=== PATIENT | female | born 1985 | race African-American/Black ===

== ENCOUNTER 2018-11-06 14:42 | Inpatient (IN) ==
[2018-11-06] MEDS ORDERED: ALBUTEROL 2.5 MG/3 ML NEB RESP TX PRN (16:42)
[2018-11-06] MEDS ORDERED: ONDANSETRON 4 MG/2 ML VIAL IV PRN (16:42)
[2018-11-06] MEDS ORDERED: PROPOFOL 1,000 MG/100 ML BOTTLE IV SCH (17:00)
[2018-11-06 17:20] LABS: Basophils % 0.3 % (0.0-0.8); Hematocrit 32.7 VOL% (35.7-47.0); Hemoglobin 10.8 GM/DL (12.0-16.0); Immature Granulocytes % 0.4 %; Immature Granulocytes Absolute 0.03 #; Lymphocytes # 2.9 10*3/uL (1.4-4.0); Lymphocytes % 39.7 % (21.3-54.2); Mean Corpuscular Volume 100.3 FL (87-102); Mean Platelet Volume 11.9 FL (9.6-12.0); Monocytes % 8.8 % (1.7-12.7); Neutrophils % 50.8 % (38.7-73.9); Red Blood Count 3.26 MC/CUMM (3.8-5.5); Red Cell Distribution Width 13.6 % (9.3-17.3); White Blood Count 7.4 T/CUMM (4-12)
[2018-11-06 17:21] LABS: Platelet Count 73 T/CUMM (130-400)
[2018-11-06 17:22] LABS: Allen Test Positive; Pt O2 Delivery Device Ventilator
[2018-11-06 17:26] LABS: ABG Base Excess -0.6 MMOL/L (-2.5-2.5); ABG Oxygen Saturation 99.4 % (95-100); ABG PCO2 39.3 MM HG (35-48); ABG PH 7.404 (7.35-7.45); ABG TCO2 25.2 MMOL/L (23-27)
[2018-11-06 17:54] LABS: Albumin 2.5 G/DL (3.4-5.0); Bilirubin,Total 0.8 MG/DL (0.2-1.0); Calcium 7.7 MG/DL (8.5-10.1); Thyroid Stimulating Hormone 0.705 uIU/ml (0.358-3.74); Total Protein 6.7 G/DL (6.4-8.3)
[2018-11-06 17:56] LABS: Band Neutrophils 3 % (0-10); Lymphocytes 34 % (20-55); Segmented Neutrophils 53 % (50-85); Total Cells Counted 100
[2018-11-06 17:57] LABS: Anisocytosis 1+; Hypochromasia 1+; Platelet Estimate Decreased; Polychromasia 1+
[2018-11-06] MEDS: SODIUM CHLORIDE 0.9% 1,000 ML IV SCH (18:09)
[2018-11-06 18:13] LABS: Apearance,Urine CLEAR (Clear); Bilirubin,Urine Moderate mg/dL (Negative); Blood, Urine Negative (Negative); Glucose,Urine (UA) Negative (Negative); Ketones,Urine Negative (Negative); Mucus,Urine Occasional /LPF (Occasional); Nitrite,Urine Negative (Negative); Protein,Urine 100 MG/DL; RBC,Urine 19 /HPF (0-4); Squamous Epithelial Cell,Urine Occasional /HPF (0-10); Urine Color Amber (Yellow); Urine Specific Gravity 1.049 (1.001-1.035); WBC,Urine 23 /HPF (0-6)
[2018-11-06] MEDS: PANTOPRAZOLE 40 MG VIAL IV SCH (18:18)
[2018-11-06] MEDS: POTASSIUM CHLORIDE RIDER 10 MEQ in PREMIX 1 EACH IV SCH ×4 (18:26→22:10)
[2018-11-06] MEDS: PIPERACILLIN/TAZOBACTAM 3,375 MG in SODIUM CHLORIDE 0.9% 100 ML IV SCH (18:30)
[2018-11-06] MEDS: ALBUTEROL/IPRATROPIUM 3 ML NEB RESP TX SCH (19:23)
[2018-11-06] MEDS ORDERED: POTASSIUM CHLORIDE RIDER 10 MEQ in PREMIX 1 EACH IV PRN (19:34)
[2018-11-06 20:15] LABS: INR 1.1; PT Patient Result 11.9 SECS (9.6-12.2); Partial Thromboplastin Time 29.1 SECS (20.8-36.0)
[2018-11-06] MEDS: ENOXAPARIN 40 MG/0.4 ML SYRINGE SUBCUT SCH (21:07)
[2018-11-07] MEDS: PIPERACILLIN/TAZOBACTAM 3,375 MG in SODIUM CHLORIDE 0.9% 100 ML IV SCH ×3 (00:44→17:44)
[2018-11-07] MEDS: ALBUTEROL/IPRATROPIUM 3 ML NEB RESP TX SCH ×4 (00:58→19:08)
[2018-11-07 03:35] LABS: ABG Base Excess -1.2 MMOL/L (-2.5-2.5); ABG HCO3 23.5 MMOL/L (20-26); ABG Oxygen Saturation 98.9 % (95-100); ABG PCO2 43.7 MM HG (35-48); ABG PH 7.355 (7.35-7.45); ABG TCO2 22.2 MMOL/L (23-27); Allen Test Positive; Pt O2 Delivery Device Ventilator
[2018-11-07 04:28] LABS: Basophils % 0.2 % (0.0-0.8); Eosinophils % 0.4 % (0.00-10.9); Hematocrit 31.1 VOL% (35.7-47.0); Hemoglobin 10.2 GM/DL (12.0-16.0); Immature Granulocytes % 0.4 %; Immature Granulocytes Absolute 0.02 #; Lymphocytes # 1.9 10*3/uL (1.4-4.0); Lymphocytes % 40.5 % (21.3-54.2); Mean Corpuscular HGB Conc 32.8 GM/DL (32-36); Mean Corpuscular Volume 100.3 FL (87-102); Mean Platelet Volume 12.1 FL (9.6-12.0); Monocytes % 10.7 % (1.7-12.7); Neutrophils % 47.8 % (38.7-73.9); Red Cell Distribution Width 14.2 % (9.3-17.3); White Blood Count 4.7 T/CUMM (4-12)
[2018-11-07 04:32] LABS: Platelet Count 70 T/CUMM (130-400)
[2018-11-07 04:52] LABS: Hypochromasia 1+; Platelet Estimate Decreased
[2018-11-07] MEDS: SODIUM CHLORIDE 0.9% 1,000 ML IV SCH ×4 (05:01→15:27)
[2018-11-07 05:23] LABS: Albumin 2.3 G/DL (3.4-5.0); Bilirubin,Total 0.8 MG/DL (0.2-1.0); Calcium 7.5 MG/DL (8.5-10.1); Osmolality,Calculated 288.4 MOS/KG (273-304); Risk Ratio 4.27; Total Protein 6.2 G/DL (6.4-8.3); VLDL CHOLESTEROL 50.8 MG/DL
[2018-11-07] MEDS ORDERED: GLUCAGON 1 MG VIAL IM PRN (12:09)
[2018-11-07] MEDS ORDERED: DEXTROSE 50% 25 GM/50 ML VIAL IV PRN (12:09)
[2018-11-07] MEDS ORDERED: KETOROLAC 30 MG/1 ML VIAL IV ONE (17:12)
[2018-11-07] MEDS: PANTOPRAZOLE 40 MG VIAL IV SCH (17:34)
[2018-11-07] MEDS: PROPRANOLOL 40 MG TABLET PO SCH ×2 (17:37→21:04)
[2018-11-07] MEDS ORDERED: INSULIN REGULAR 100 UNIT/ML SUBCUT SCH (18:00)
[2018-11-07] MEDS ORDERED: valACYclovir 500 MG TABLET PO SCH (21:00)
[2018-11-07] MEDS: ENOXAPARIN 40 MG/0.4 ML SYRINGE SUBCUT SCH (21:04)
[2018-11-07] MEDS: AMITRIPTYLINE 25 MG TABLET PO SCH (21:04)
[2018-11-08] MEDS: ACETAMINOPHEN 325 MG TABLET PO PRN ×2 (00:05→20:00)
[2018-11-08] MEDS: PIPERACILLIN/TAZOBACTAM 3,375 MG in SODIUM CHLORIDE 0.9% 100 ML IV SCH ×3 (00:05→17:42)
[2018-11-08] MEDS: ALBUTEROL/IPRATROPIUM 3 ML NEB RESP TX SCH ×4 (01:47→19:47)
[2018-11-08 03:23] LABS: ABG Base Excess 0.6 MMOL/L (-2.5-2.5); ABG HCO3 24.8 MMOL/L (20-26); ABG Oxygen Saturation 94.3 % (95-100); ABG PCO2 40.3 MM HG (35-48); ABG PH 7.405 (7.35-7.45); ABG PO2 70.8 MM HG (80-95); ABG TCO2 22.6 MMOL/L (23-27); Allen Test Positive
[2018-11-08] MEDS: SODIUM CHLORIDE 0.9% 1,000 ML IV SCH (03:33)
[2018-11-08 04:31] LABS: Basophils # 0.1 10*3/uL (0.0-0.2); Basophils % 0.5 % (0.0-0.8); Hematocrit 31.8 VOL% (35.7-47.0); Hemoglobin 10.3 GM/DL (12.0-16.0); Lymphocytes # 4.4 10*3/uL (1.4-4.0); Lymphocytes % 45.4 % (21.3-54.2); Mean Corpuscular HGB Conc 32.4 GM/DL (32-36); Mean Corpuscular Volume 101.6 FL (87-102); Mean Platelet Volume 12.3 FL (9.6-12.0); Monocytes % 7.7 % (1.7-12.7); Neutrophils % 45.4 % (38.7-73.9); Platelet Count 82 T/CUMM (130-400); Red Blood Count 3.13 MC/CUMM (3.8-5.5); Red Cell Distribution Width 14.3 % (9.3-17.3); White Blood Count 9.7 T/CUMM (4-12)
[2018-11-08 04:54] LABS: Prealbumin 11.4 MG/DL (20-40)
[2018-11-08 05:02] LABS: Band Neutrophils 4 % (0-10); Hypochromasia 1+; Lymphocytes 23 % (20-55); Platelet Estimate Decreased; Segmented Neutrophils 62 % (50-85); Total Cells Counted 100
[2018-11-08] MEDS: POTASSIUM CHLORIDE 20 MEQ TABLET PO PRN ×4 (06:04→22:21)
[2018-11-08] MEDS ORDERED: FUROSEMIDE 20 MG/2 ML VIAL IV ONE (08:54)
[2018-11-08 08:58] LABS: ABG Base Excess 0.1 MMOL/L (-2.5-2.5); ABG HCO3 24.5 MMOL/L (20-26); ABG Oxygen Saturation 98.1 % (95-100); ABG PCO2 37.2 MM HG (35-48); ABG PH 7.423 (7.35-7.45); ABG TCO2 21.7 MMOL/L (23-27); Allen Test Positive
[2018-11-08] MEDS ORDERED: FUROSEMIDE 40 MG/4 ML VIAL IV ONE (08:58)
[2018-11-08] MEDS ORDERED: MAGNESIUM SULF RIDER 2 GM in PREMIX 1 EACH IV PRN (09:03)
[2018-11-08] MEDS ORDERED: MAGNESIUM SULF RIDER 4 GM in PREMIX 1 EACH IV PRN (09:03)
[2018-11-08] MEDS: POTASSIUM CHLORIDE 20 MEQ/15 ML UDCUP PER TUBE PRN ×3 (09:33→15:18)
[2018-11-08] MEDS: PROPRANOLOL 40 MG TABLET PO SCH ×2 (09:33→21:17)
[2018-11-08 11:59] LABS: Glucose,CSF 52 MG/DL (40-70)
[2018-11-08 12:21] LABS: Appearance,CSF Clear; Monocytes,CSF 100 %; Red Blood Cell,CSF < 1 C/CUMM; White Blood Cell,CSF 4 C/CUMM
[2018-11-08] MEDS: LACTULOSE 20 GM/30 ML UDCUP PO SCH ×2 (15:18→21:18)
[2018-11-08] MEDS: PANTOPRAZOLE 40 MG VIAL IV SCH (17:20)
[2018-11-08] MEDS: AMITRIPTYLINE 25 MG TABLET PO SCH (21:17)
[2018-11-08] MEDS: ENOXAPARIN 40 MG/0.4 ML SYRINGE SUBCUT SCH (21:19)
[2018-11-09] MEDS: POTASSIUM CHLORIDE 20 MEQ TABLET PO PRN (00:35)
[2018-11-09] MEDS: ALBUTEROL/IPRATROPIUM 3 ML NEB RESP TX SCH ×4 (00:37→20:12)
[2018-11-09] MEDS: PIPERACILLIN/TAZOBACTAM 3,375 MG in SODIUM CHLORIDE 0.9% 100 ML IV SCH ×3 (00:48→17:07)
[2018-11-09 03:57] LABS: Basophils # 0.1 10*3/uL (0.0-0.2); Basophils % 0.6 % (0.0-0.8); Hematocrit 33.4 VOL% (35.7-47.0); Immature Granulocytes % 0.6 %; Immature Granulocytes Absolute 0.07 #; Lymphocytes # 5.1 10*3/uL (1.4-4.0); Lymphocytes % 41.5 % (21.3-54.2); Mean Corpuscular HGB Conc 32.9 GM/DL (32-36); Mean Corpuscular Volume 100.9 FL (87-102); Mean Platelet Volume 12.3 FL (9.6-12.0); Monocytes % 8.1 % (1.7-12.7); Neutrophils % 49.2 % (38.7-73.9); Platelet Count 78 T/CUMM (130-400); Red Blood Count 3.31 MC/CUMM (3.8-5.5); Red Cell Distribution Width 14.3 % (9.3-17.3); White Blood Count 12.2 T/CUMM (4-12)
[2018-11-09 04:42] LABS: Platelet Estimate Decreased
[2018-11-09 04:50] LABS: ABG Base Excess 0.2 MMOL/L (-2.5-2.5); ABG HCO3 25.6 MMOL/L (20-26); ABG Oxygen Saturation 96.3 % (95-100); ABG PCO2 44.2 MM HG (35-48); ABG PO2 90.3 MM HG (80-95); ABG TCO2 26.9 MMOL/L (23-27); Allen Test Positive; Pt O2 Delivery Device Other
[2018-11-09] MEDS: ACETAMINOPHEN 325 MG TABLET PO PRN ×2 (05:12→21:11)
[2018-11-09 08:27] LABS: Calcium 7.9 MG/DL (8.5-10.1); Osmolality,Calculated 276.4 MOS/KG (273-304)
[2018-11-09] MEDS: LACTULOSE 20 GM/30 ML UDCUP PO SCH ×2 (08:29→21:12)
[2018-11-09] MEDS ORDERED: FUROSEMIDE 40 MG/4 ML VIAL IV ONE (09:00)
[2018-11-09] MEDS: PROPRANOLOL 40 MG TABLET PO SCH ×2 (09:45→21:11)
[2018-11-09] MEDS: PANTOPRAZOLE 40 MG VIAL IV SCH (17:05)
[2018-11-09] MEDS ORDERED: LORazepam 2 MG/1 ML VIAL IV PRN (20:42)
[2018-11-09] MEDS ORDERED: LORazepam 2 MG/1 ML VIAL ONE (20:56)
[2018-11-09] MEDS: levETIRAcetam 500 MG TABLET PO SCH (21:11)
[2018-11-09] MEDS: AMITRIPTYLINE 25 MG TABLET PO SCH (21:12)
[2018-11-09] MEDS: ENOXAPARIN 40 MG/0.4 ML SYRINGE SUBCUT SCH (21:13)
[2018-11-10] MEDS: ALBUTEROL/IPRATROPIUM 3 ML NEB RESP TX SCH ×4 (00:16→19:24)
[2018-11-10] MEDS: PIPERACILLIN/TAZOBACTAM 3,375 MG in SODIUM CHLORIDE 0.9% 100 ML IV SCH ×3 (01:50→17:32)
[2018-11-10 05:20] LABS: Basophils # 0.1 10*3/uL (0.0-0.2); Basophils % 0.5 % (0.0-0.8); Hematocrit 34.4 VOL% (35.7-47.0); Hemoglobin 11.2 GM/DL (12.0-16.0); Immature Granulocytes % 0.3 %; Immature Granulocytes Absolute 0.03 #; Lymphocytes # 4.7 10*3/uL (1.4-4.0); Lymphocytes % 50.3 % (21.3-54.2); Mean Corpuscular HGB Conc 32.6 GM/DL (32-36); Mean Corpuscular Volume 100.6 FL (87-102); Mean Platelet Volume 12.1 FL (9.6-12.0); Monocytes % 9.6 % (1.7-12.7); Neutrophils % 39.3 % (38.7-73.9); Platelet Count 70 T/CUMM (130-400); Red Blood Count 3.42 MC/CUMM (3.8-5.5); Red Cell Distribution Width 14.3 % (9.3-17.3); White Blood Count 9.3 T/CUMM (4-12)
[2018-11-10 05:50] LABS: Band Neutrophils 4 % (0-10); Calcium 8.2 MG/DL (8.5-10.1); Lymphocytes 48 % (20-55); Osmolality,Calculated 275.7 MOS/KG (273-304); Segmented Neutrophils 41 % (50-85); Total Cells Counted 100
[2018-11-10 05:51] LABS: Anisocytosis 1+; Platelet Estimate Decreased
[2018-11-10] MEDS ORDERED: FUROSEMIDE 20 MG/2 ML VIAL IV SCH (09:00)
[2018-11-10] MEDS ORDERED: NON-FORMULARY MEDICATION (Sumatriptan Succinate [Imitrex] 100 MG) PO PRN (09:27)
[2018-11-10] MEDS ORDERED: hydrOXYzine HCL 25 MG TABLET PO PRN (09:27)
[2018-11-10] MEDS: POTASSIUM CHLORIDE 20 MEQ TABLET PO PRN (09:28)
[2018-11-10] MEDS: PROPRANOLOL 40 MG TABLET PO SCH ×2 (09:28→21:57)
[2018-11-10] MEDS: levETIRAcetam 500 MG TABLET PO SCH ×2 (09:31→21:56)
[2018-11-10] MEDS: PREGABALIN 100 MG CAPSULE PO SCH ×2 (09:53→21:55)
[2018-11-10] MEDS: DULoxetine 30 MG CAPSULE PO SCH (09:53)
[2018-11-10] MEDS: PANTOPRAZOLE 40 MG VIAL IV SCH (17:30)
[2018-11-10] MEDS: ACETAMINOPHEN 325 MG TABLET PO PRN (19:36)
[2018-11-10] MEDS ORDERED: QUETIAPINE 600 MG PO SCH (21:00)
[2018-11-10] MEDS: QUEtiapine XR 50 MG TABLET PO SCH (21:55)
[2018-11-10] MEDS: ENOXAPARIN 40 MG/0.4 ML SYRINGE SUBCUT SCH (21:55)
[2018-11-10] MEDS: AMITRIPTYLINE 25 MG TABLET PO SCH (21:56)
[2018-11-11] MEDS: ALBUTEROL/IPRATROPIUM 3 ML NEB RESP TX SCH ×4 (00:55→20:08)
[2018-11-11] MEDS: PIPERACILLIN/TAZOBACTAM 3,375 MG in SODIUM CHLORIDE 0.9% 100 ML IV SCH ×3 (01:47→17:45)
[2018-11-11 04:18] LABS: Basophils % 0.7 % (0.0-0.8); Eosinophils % 0.3 % (0.00-10.9); Hematocrit 35.4 VOL% (35.7-47.0); Hemoglobin 11.6 GM/DL (12.0-16.0); Immature Granulocytes % 0.3 %; Immature Granulocytes Absolute 0.02 #; Lymphocytes # 3.3 10*3/uL (1.4-4.0); Lymphocytes % 55.3 % (21.3-54.2); Mean Corpuscular HGB Conc 32.8 GM/DL (32-36); Mean Corpuscular Volume 101.7 FL (87-102); Mean Platelet Volume 12.8 FL (9.6-12.0); Monocytes % 9.2 % (1.7-12.7); Neutrophils % 34.2 % (38.7-73.9); Platelet Count 61 T/CUMM (130-400); Red Blood Count 3.48 MC/CUMM (3.8-5.5); Red Cell Distribution Width 14.2 % (9.3-17.3)
[2018-11-11 04:27] LABS: Calcium 8.2 MG/DL (8.5-10.1); Osmolality,Calculated 274.7 MOS/KG (273-304)
[2018-11-11 04:46] LABS: Band Neutrophils 1 % (0-10); Eosinophils 1 % (0-10); Lymphocytes 50 % (20-55); Segmented Neutrophils 38 % (50-85); Total Cells Counted 100
[2018-11-11 04:47] LABS: Hypochromasia 1+; Platelet Estimate Decreased
[2018-11-11] MEDS: ACETAMINOPHEN 325 MG TABLET PO PRN (06:06)
[2018-11-11] MEDS: POTASSIUM CHLORIDE 20 MEQ TABLET PO PRN ×2 (06:40→08:40)
[2018-11-11] MEDS: DULoxetine 30 MG CAPSULE PO SCH (08:40)
[2018-11-11] MEDS: PROPRANOLOL 40 MG TABLET PO SCH ×2 (08:40→21:30)
[2018-11-11] MEDS: PREGABALIN 100 MG CAPSULE PO SCH ×2 (08:40→21:29)
[2018-11-11] MEDS: levETIRAcetam 500 MG TABLET PO SCH ×2 (08:40→21:29)
[2018-11-11] MEDS: PANTOPRAZOLE 40 MG TABLET PO SCH (08:40)
[2018-11-11] MEDS: LEVOFLOXACIN 750 MG TABLET PO SCH (10:21)
[2018-11-11] MEDS: QUEtiapine XR 50 MG TABLET PO SCH (21:29)
[2018-11-11] MEDS: AMITRIPTYLINE 25 MG TABLET PO SCH (21:29)
[2018-11-11] MEDS: ENOXAPARIN 40 MG/0.4 ML SYRINGE SUBCUT SCH (21:30)
[2018-11-12] MEDS: ALBUTEROL/IPRATROPIUM 3 ML NEB RESP TX SCH ×3 (01:23→13:12)
[2018-11-12] MEDS: PIPERACILLIN/TAZOBACTAM 3,375 MG in SODIUM CHLORIDE 0.9% 100 ML IV SCH (01:37)
[2018-11-12 08:43] LABS: Basophils # 0.1 10*3/uL (0.0-0.2); Basophils % 0.7 % (0.0-0.8); Eosinophils % 0.2 % (0.00-10.9); Hematocrit 32.8 VOL% (35.7-47.0); Hemoglobin 10.8 GM/DL (12.0-16.0); Immature Granulocytes % 0.4 %; Immature Granulocytes Absolute 0.04 #; Lymphocytes # 5.8 10*3/uL (1.4-4.0); Lymphocytes % 61.5 % (21.3-54.2); Mean Corpuscular HGB Conc 32.9 GM/DL (32-36); Mean Corpuscular Volume 100.6 FL (87-102); Mean Platelet Volume 12.8 FL (9.6-12.0); Monocytes % 5.9 % (1.7-12.7); Neutrophils % 31.3 % (38.7-73.9); Platelet Count 74 T/CUMM (130-400); Red Blood Count 3.26 MC/CUMM (3.8-5.5); Red Cell Distribution Width 14.2 % (9.3-17.3); White Blood Count 9.4 T/CUMM (4-12)
[2018-11-12 08:57] LABS: Calcium 8.3 MG/DL (8.5-10.1); Osmolality,Calculated 273.7 MOS/KG (273-304)
[2018-11-12 09:04] LABS: Band Neutrophils 1 % (0-10); Hypochromasia Slight; Lymphocytes 36 % (20-55); Platelet Estimate Decreased; Segmented Neutrophils 53 % (50-85); Total Cells Counted 100
[2018-11-12] MEDS ORDERED: FLUCONAZOLE 100 MG TABLET PO ONE (09:10)
[2018-11-12] MEDS: LACTULOSE 20 GM/30 ML UDCUP PO SCH (10:03)
[2018-11-12] MEDS: DULoxetine 30 MG CAPSULE PO SCH (10:03)
[2018-11-12] MEDS: levETIRAcetam 500 MG TABLET PO SCH (10:04)
[2018-11-12] MEDS: PROPRANOLOL 40 MG TABLET PO SCH (10:04)
[2018-11-12] MEDS: PANTOPRAZOLE 40 MG TABLET PO SCH (10:04)
[2018-11-12] MEDS: PREGABALIN 100 MG CAPSULE PO SCH (10:04)
[2018-11-12] MEDS: LEVOFLOXACIN 750 MG TABLET PO SCH (10:05)
[2018-11-12 11:11] LABS: VDRL Spinal Fluid Negative (Negative)
[2018-11-12 14:01] LABS: CMV PCR Source CSF; Epstein-Barr Virus Result Negative (Negative); Epstein-Barr Virus Source CSF; Specimen Source CSF
[2018-11-12 17:18] VITALS: BP 100/61
[2018-11-13 12:51] LABS: West Nile Virus Ab, IgG, CSF Negative (Negative); West Nile Virus Ab, IgM, CSF Negative (Negative)
== END 2018-11-12 17:33 | disposition home or self-care (01) | DRG 100 ==
LOC: N.CC 16:26 → SUATTDRO 16:26 → N.3E 11-11 17:17
PROVIDERS: ADMIT Internal Medicine